=== PATIENT | female | born 1945 | race Asian ===

== ENCOUNTER 2022-08-20 15:29 | Emergency (ER) | payer MEDICARE ==
[~2022-08-20] VITALS: Ht 149.9 cm; Wt 36.3 kg
[2022-08-20 15:30] VITALS: BP_SYST 141
--- NOTE | 2022-08-20 16:00 | NUR ---
PT BIBA BLS FOR SYCOPE EPISODE. FAMILY STATES PT WAS DOWN FOR APPROX 4MIN. PT IS AAOX4. NORMAL S1S2 NOTED. RESP E/U. ON R/A. DENIES N/V/D/C. SKIN INTACT, WARM, CAP REFILL <3SECS, NO EDEMA. VSS. DENIES PAIN.
--- NOTE | 2022-08-20 16:10 | NUR ---
DR. KLEIN AT BEDSIDE TO ASSESS PT.
--- NOTE | 2022-08-20 16:20 | NUR ---
# 20 gauge angiocath placed Flushed with 10 cc of normal saline. No evidence of infiltration noted. Patient tolerated well.
[2022-08-20] MEDS ORDERED: NACL 0.9% 1,000 ML IV ONE (16:45)
--- NOTE | 2022-08-20 17:00 | NUR ---
CT SCAN AND CXR COMPLETED
--- NOTE | 2022-08-20 17:41 | NUR ---
# 20 gauge angiocath placed to LAC. Use of asceptic technique. Opsite placed over site. Blood return noted. Flushed with 10 cc of normal saline. No evidence of infiltration noted. Patient tolerated well.
--- NOTE | 2022-08-20 17:42 | NUR ---
CT SCAN SHOW HEAD BLEED, DR. KLEIN MADE AWARE. NNOS.
--- NOTE | 2022-08-20 18:14 | NUR ---
TRANSFER INFO [facility] ED ACCEPTING: DR. LEWIS REPORT: [phone] *BRIANNE REQUESTED WE SET UP TRANSPORT SPOKE TO RACHEL
[2022-08-20 18:19] LABS: BASOPHILS % (AUTO) 0.1 % (0.0-2.0); EOSINOPHILS % (AUTO) 0.3 % (0.0-4.0); HEMATOCRIT 40.4 % (36-48); HEMOGLOBIN 13.8 g/dL (12.0-16.0); LYMPHOCYTES # (AUTO) 0.6 K/uL (1.0-5.5); LYMPHOCYTES % (AUTO) 5.9 % (20.5-51.5); MEAN CORPUSCULAR HEMOGLOBIN 32 pg (27-31); MEAN CORPUSCULAR HGB CONC 34 % (32-36); MEAN CORPUSCULAR VOLUME 93 fL (79.0-98.0); MONOCYTES # (AUTO) 0.5 K/uL (0.0-1.0); MONOCYTES % (AUTO) 5.1 % (1.7-9.3); NEUTROPHILS # (AUTO) 9.3 K/uL (1.8-7.7); NEUTROPHILS % (AUTO) 88.6 % (40.0-70.0); PLATELET COUNT (AUTO) 222 K/uL (130-430); RED BLOOD CELL COUNT(AUTO) 4.36 MIL/uL (4.2-6.2); RED CELL DISTRIBUTION WIDTH 14.8 % (9.0-15.0); WHITE BLOOD COUNT (AUTO) 10.4 K/uL (4.8-10.8)
[2022-08-20 18:34] LABS: ANION GAP 8 (5-15); CHLORIDE 103 mmol/L (98-107); GLUCOSE 164 mg/dL (70-99); UREA NITROGEN, BLOOD 14 mg/dL (8-21)
[2022-08-20 18:39] LABS: ALANINE AMINOTRANSFERASE 11 U/L (12-78); ALBUMIN 3.6 g/dL (3.4-4.8); ASPARTATE AMINOTRANSFERASE 23 U/L (10-37); TOTAL BILIRUBIN 0.5 mg/dL (0.0-1.0)
[2022-08-20 18:40] LABS: BILIRUBIN,URINE NEGATIVE (NEGATIVE); BLOOD, URINE NEGATIVE (NEGATIVE); CLARITY/URINE CLEAR (CLEAR); COLOR,URINE YELLOW (YELLOW); GLUCOSE,URINE NEGATIVE (NEGATIVE); KETONES,URINE NEGATIVE (NEGATIVE); LEUKOCYTE ESTERASE ,URINE TRACE (NEGATIVE); NITRITE, URINE NEGATIVE (NEGATIVE); PH,URINE 7.5 (5.0-8.0); PROTEIN URINE NEGATIVE (NEGATIVE); UROBILINOGEN,URINE 0.2 (0.2-1.0)
[2022-08-20 19:06] LABS: BACTERIA,URINE None Seen /HPF (None Seen); MUCUS,URINE None Seen /LPF (None Seen); RBC,URINE NONE SEEN /HPF (0-3); WBC,URINE 0-3 /HPF (0-3)
--- NOTE | 2022-08-20 19:19 | NUR ---
CALLED [facility] AND GAVE REPORT TO CHANI SERVIN ([phone]). PT TO TRANSFER AT 1930. PT TO BE ACCEPTED BY DR. LEWIS.
--- NOTE | 2022-08-20 19:37 | NUR ---
ENDORSED ALL CARE TO CHANI KAPLAN.
--- NOTE | 2022-08-20 19:55 | NUR ---
Patient to be transferred to [facility]. Is being transferred due to higher level of care. Receiving facility has accepting physician and available space. ER physician Denny KLEIN has signed transfer form. Patient or responsible alliance party has agreed to transfer and signed form. Patient belongings inventoried and will be sent with patient. Copy of nursing notes, lab reports, EKG, Physicians Orders and X-rays to be sent with patient. Report called to CHANI SERVIN at receiving facility. Receiving physician is JOSHUA. [facility] ambulance service has been called for transfer. ETA is 1949. [facility] AMB W/ 1 RN & 2 HADOOP APPLICATION DEVELOPER ARRIVED @ 1949. REPORT GIVEN TO CHANI MALAVE. PT LEFT VIA [facility]. FAMILY MEMBER AT BEDSIDE IS AWARE.
[2022-08-20 20:00] VITALS: BP_SYST 127
== END 2022-08-20 20:00 | disposition short-term general hospital (02) ==
LOC: SED 15:29
DX: S00.03XA Contusion of scalp, initial encounter (principal); I60.9 Nontraumatic subarachnoid hemorrhage, unspecified; E11.9 Type 2 diabetes mellitus without complications; I10 Essential (primary) hypertension; K21.9 Gastro-esophageal reflux disease without esophagitis; Z79.899 Other long term (current) drug therapy; Z20.822 Contact with and (suspected) exposure to COVID-19; W01.198A Fall on same level from slipping, tripping and stumbling with subsequent striking against other object, initial encounter; Y93.89 Activity, other specified; Y92.89 Other specified places as the place of occurrence of the external cause; Y99.8 Other external cause status
CPT/HCPCS: 99291; 96360; 70450; 87426; 80053; 81000; 82962; 85025; 87040; 36415; 71045; 76376; 83605; J7030